=== PATIENT | male | born 2000 | race Caucasian/White ===

== ENCOUNTER → 2019-04-15 | Outpatient (CLI) | payer SELFPAY ==
[2019-04-14 13:38] VITALS: BMI 19.9
== END | disposition home or self-care (01) ==
PROVIDERS: Family Provider Family Medicine; PCP Family Medicine; Referring Provider Physician Assistant Medical; Visit Provider Physician Assistant Medical
DX: J02.9 Acute pharyngitis, unspecified (principal)
CPT/HCPCS: 87081

== ENCOUNTER 2023-08-18 13:48 | Emergency (ER) | payer OTHER, SELFPAY ==
[2023-08-18 13:49] VITALS: BP 134/71; PULSE 96; RESP 18; TEMP 36.8; O2SAT 100; BMI 21.4
--- NOTE | 2023-08-18 15:29 | EDS_ITS ---
HPI History of Present Illness HPI Narrative: Patient presents with left thumb laceration that occurred today. Patient states he was working with a piece of metal when it cut his thumb. Patient states he is unable to extend his thumb since the injury. Patient is unsure of his last tetanus. Patient is right-hand dominant. Patient describes his pain as dull. Patient states it is worse with any movement. Patient denies any paresthesias. Patient denies any other injuries. Chief Complaint: Laceration Informant: patient Occured/Mechanism Comment: Cut on edge of metal Onset/Context/Timing Context: Sudden Onset Timing: Continuous Quality of Pain: Dull Location: Left thumb Worsened by: Movement Relieved by: Nothing Associated Symptoms Associated Symptoms: Positive for Weakness; Negative for Parasthesia Narrative Tetanus Immunization: Unknown PFSH PFSH Medical History no medical history no medical history Home Medications cephalexin 500 mg capsule 500 mg PO Q6 #20 CAPSULES 08/18/23 [Rx Last Taken Unknown] Allergy/AdvReac Type Severity Reaction Status Date / Time No Known Allergies Allergy Verified 08/18/23 13:49 Surgical History no surgical history no surgical history Social History Smoking Status: Current some day smoker tobacco type: cigarettes ROS ROS ED Constitutional Constitutional ED: Denies chills or fever(s) Eyes Eyes: Denies blurry vision or change in vision ENT ENT ED: Denies rhinorrhea or sore throat Cardiovascular Cardiovascular: Denies chest pain or palpitations Respiratory/Chest Respiratory/Chest: Denies cough or dyspnea Gastrointestinal Gastrointestinal: Denies nausea or vomiting Genitourinary Genitourinary ED: Denies dysuria or hematuria Musculoskeletal Musculoskeletal: Denies back pain or neck pain Integumentary Denies abscess or rash Neurologic Neurologic: Denies headache(s) or weakness Allergic/Immunologic Allergic/Immunologic ED: Denies mouth swelling or urticaria EXAM Physical Exam Const Vital Signs: 08/18/23 13:49 Temperature 98.2 F Temperature Source Temporal Pulse Rate 96 Respiratory Rate 18 Blood Pressure 134/71 H Blood Pressure Mean 92 Pulse Ox 100 Oxygen Delivery Method Room Air Positive well nourished and well developed General Appearance ED: well developed and NAD HEENT Reports moist mucous membranes Neck full ROM and supple Chest Wall inspection of chest normal and palpation of chest normal Resp normal respiratory effort and clear to auscultation bilaterally Cardio regular rate and regular rhythm Extremity Extremity Narrative: There is a 3 cm full-thickness linear laceration over the dorsal aspect of the left thumb just proximal to the MP joint. There is a laceration of the extensor tendon. There are no foreign bodies visualized. There is no active bleeding noted. Sensation was intact to light touch in all digits. Capillary refill was less than 2 seconds in all digits. Strength is 0/5 in extension of the MP and IP joints of the left thumb. There is otherwise 5/5 in the radial, median, and ulnar areas. Neuro oriented x3, CN's II-XII intact bilaterally, moves all extremities, no focal motor deficits and no sensory deficits noted Sensorium / Orientation: alert Psych mental status grossly normal MDM MDM MDM Narrative Medical decision making narrative: Differential diagnosis includes extensor tendon laceration, foreign body, and fracture. X-rays of the left thumb will be obtained to assess for fracture and foreign body. Radiography Diagnostic Testing: X-rays of the left thumb were obtained. There are 3 views. On my independent interpretation, there is no acute fracture. There is no foreign body noted. Radiologist also interpreted the x-rays and agrees. Management Discussion w/another healthcare provider: Paint Pourer Treatment and Re-Evaluation Narrative: Patient was given a tetanus booster. Hand service consult was obtained. Case was discussed with [facility] telemetry hand service. He recommended closing the wound with simple sutures. He also recommended placing the patient in a thumb spica splint and placing the patient on Keflex. He recommended having the patient follow-up with their hand service. Patient however, states he would prefer to follow-up with a hand surgeon closer to [place]. Patient was given referral for [facility] hand. Patient was given a dose of Keflex here. Patient was given a prescription for Keflex. Patient was instructed to maintain the thumb spica splint until rechecked. Patient understood and was agreeable with the plan. All questions were answered. Procedures Lacerations Left thumb: Length: 3 cm Depth: Skin Shape: Linear Prep: Sterile Conditions and Chlorhexadine Laceration repair: Irrigated, Lidocaine, Local, Skin sutures and Wound explored Irrigated (ml): 150 Number of Sutures/Toyin: 4 Suture Information: Ethilon, Simple and 4-0 Upper Extremity Splints Upper Extremity Splint: Orthoglass and Thumb Spica Splint Fabrication: Fabricated Location: Left Discharge Plan Triage Chief Complaint: Laceration ED Provider: Manuel Orozco Dx/Rx/DC Orders Clinical Impression: Extensor tendon laceration of left hand with open wound, Laceration of left hand Instructions: ED Laceration Hand with ... Prescriptions: New cephalexin [cephalexin] 500 mg capsule 500 mg PO Q6 Qty: 20 0RF Primary Care Provider: Ned Moctezuma Referrals: Ned Moctezuma DO [Primary Care Provider] - 1-2 Weeks Jasvir Campo MD [Non-Staff] - 3-5 Days
[2023-08-18] MEDS: Diphth,Pertuss(Acell),Tet Vac 0.5 ML Vial IM (16:32)
[2023-08-18] MEDS: Lidocaine 1% (20 ml mdv) 20 ML Vial INFILT (16:33)
--- NOTE | 2023-08-18 16:55 | RAD_ITS ---
STUDY: X-RAY - LEFT HAND, ATTENTION FIRST FINGER REASON FOR EXAM: Male, 22 years old. Injury/Pain TECHNIQUE: 3 view(s) of the finger were obtained. COMPARISON: None. FINDINGS: Normal metacarpal head. Normal metacarpophalangeal joint. Normal proximal phalanx. Normal middle phalanx. Normal distal phalanx. Normal proximal interphalangeal joint. Normal distal interphalangeal joint. RAD/Finger(s) Min 2 Views IMPRESSION: Normal x-ray examination of the finger. Electronically Signed: Winston Canales MD at 17:26 EST ,
[2023-08-18] MEDS: Cephalexin 500 MG Capsule PO (22:00)
[2023-08-18 22:03] VITALS: PULSE 77; RESP 16; O2SAT 100
== END 2023-08-18 22:04 | disposition home or self-care (01) ==
PROVIDERS: Emergency Provider Emergency Medicine; PCP Family Medicine; Visit Provider Emergency Medicine
DX: S66.222A Laceration of extensor muscle, fascia and tendon of left thumb at wrist and hand level, initial encounter (principal); F17.210 Nicotine dependence, cigarettes, uncomplicated; W26.8XXA Contact with other sharp object(s), not elsewhere classified, initial encounter; Y93.89 Activity, other specified; Y99.0 Civilian activity done for income or pay; S61.012A Laceration without foreign body of left thumb without damage to nail, initial encounter; Y92.69 Other specified industrial and construction area as the place of occurrence of the external cause; Z23 Encounter for immunization
CPT/HCPCS: 12002; 73140; 90471; 90715; 99283